=== PATIENT | female | born 1955 ===

== ENCOUNTER 2016-09-11 12:08 | Emergency (ER) | payer MEDICAID ==
[2016-09-11 12:29] VITALS: BP 131/82; PULSE 93; RESP 18; TEMP 97.9; O2SAT 99
[2016-09-11 14:19] LABS: RBC URINE 2 /hpf (0-3); URINE BILIRUBIN NEGATIVE (NEGATIVE); URINE BLOOD NEGATIVE (NEGATIVE); URINE COLOR YELLOW (YELLOW); URINE GLUCOSE (UA) NEG (Normal); URINE KETONE NEGATIVE (NEGATIVE); URINE LEUKOCYTE ESTERASE NEG Leu/uL (Negative); URINE PROTEIN NEGATIVE (NEGATIVE); URINE UROBILINOGEN 0.2-1.0 mg/dL (0.2-1.0); WBC URINE < 1 /hpf (0-5)
--- NOTE | 2016-09-11 14:35 | ED PDOC ---
HPI: Psych/Substance Abuse Time Seen by Provider: 09/11/16 12:33 Chief Complaint (Nursing): Psychiatric Evaluation Chief Complaint (Provider): Anxiety History Per: Patient History/Exam Limitations: no limitations Onset/Duration Of Symptoms: Days Current Symptoms Are (Timing): Still Present Suicide/Self Injury Attempted (Context): None Modifying Factor(s): None Severity: Moderate Associated Symptoms: Anxiety. denies: Suicidal Thoughts, Suicidal Plan Involuntary Hold By: None Additional History Per: Patient Additional Complaint(s): The pt is a 60yo female with PMHx of Anxiety and Panic Disorder, presents to the ED for evaluation due to anxiety. Pt reports she is under a lot of stress as she is currently living in the homeless long term and states she has a lot of anxiety with her living condition due to concerns about getting removed from her long term. She denies any suicidal or homicidal ideation. At present, she offers no additional medical complaints. PMD: None provided Past Medical History Reviewed: Historical Data, Nursing Documentation, Vital Signs Vital Signs: Last Vital Signs Temp 97.9 F 09/11/16 12:25 Pulse 93 H 09/11/16 12:25 Resp 18 09/11/16 12:25 BP 131/82 09/11/16 12:25 Pulse Ox 99 09/11/16 12:25 - Medical History PMH: Anxiety, Gastritis, Kidney Stones - Surgical History Surgical History: No Surg Hx - Family History Family History: States: Unknown Family Hx - Social History Current smoker - smoking cessation education provided: No Alcohol: None Drugs: Denies - Home Medications Home Medications: Ambulatory Orders Medication Instructions Recorded Diazepam [Valium] 2 mg PO DAILY PRN #5 tablet 09/11/16 - Allergies Allergies/Adverse Reactions: Allergies Allergy/AdvReac Type Severity Reaction Status Date / Time No Known Allergies Allergy Verified 08/14/16 17:05 Review of Systems ROS Statement: Except As Marked, All Systems Reviewed And Found Negative Psych: Positive for: Anxiety. Negative for: Suicidal ideation Physical Exam - Reviewed Nursing Documentation Reviewed: Yes Vital Signs Reviewed: Yes - Physical Exam Appears: Positive for: Well, Non-toxic, No Acute Distress Head Exam: Positive for: ATRAUMATIC, NORMAL INSPECTION, NORMOCEPHALIC Cardiovascular/Chest: Positive for: Regular Rate, Rhythm Neurologic/Psych: Positive for: Alert, Oriented, Mood/Affect (anxious) - ECG O2 Sat by Pulse Oximetry: 99 (RA) Pulse Ox Interpretation: Normal Medical Decision Making Medical Decision Making: Time: 1300 Impression: Anxiety Plan: -- Crisis eval -- Urine dipstick --Reassess Time: 1430 Pt seen and evaluated by crisis, does not meet criteria for admission. Pt cleared by discharge by Dr. Paiz. Final diagnosis: Anxiety Scribe Attestation: Documented by Adilia Forrest acting as a scribe for Neri Brown MD. Provider Attestation: All medical record entries made by the Scribe were at my direction and personally dictated by me. I have reviewed the chart and agree that the record accurately reflects my personal performance of the history, physical exam, medical decision making, and the department course for this patient. I have also personally directed, reviewed, and agree with the discharge instructions and disposition. Disposition - Clinical Impression Clinical Impression: Anxiety - Patient ED Disposition Is Patient to be Admitted: No - Disposition Referrals: [facility] [Outside] Disposition: Routine/Home Disposition Time: 14:37 Condition: STABLE Prescriptions: Diazepam [Valium] 2 mg PO DAILY PRN #5 tablet PRN Reason: Anxiety Instructions: Anxiety (ED) Print Language: SYRIAC
== END 2016-09-11 15:12 | disposition home or self-care (01) ==
LOC: H.ER 12:08
DX: F41.9 Anxiety disorder, unspecified (principal)

== ENCOUNTER 2016-09-15 06:43 | Emergency (ER) | payer MEDICAID ==
[2016-09-15 07:00] VITALS: BP 135/78; PULSE 85; RESP 17; TEMP 97.6; O2SAT 99
--- NOTE | 2016-09-15 07:25 | ED PDOC ---
HPI: CCC, URI, Sore Throat Time Seen by Provider: 09/15/16 07:08 Chief Complaint (Nursing): ENT Problem Chief Complaint (Provider): cough History Per: Patient History/Exam Limitations: no limitations Onset/Duration Of Symptoms: Days (3-4) Additional Complaint(s): 60yo female complaining of cough with sputum, sore throat, runny nose. Also reports a headache which she resolved with Excedrin. No nausea. States secondary complaint that she finished Rx diazepam and now has further anxiety. No PMD Past Medical History Reviewed: Historical Data, Nursing Documentation, Vital Signs Vital Signs: Last Vital Signs Temp 97.6 F 09/15/16 06:57 Pulse 85 09/15/16 06:57 Resp 17 09/15/16 06:57 BP 135/78 09/15/16 06:57 Pulse Ox 99 09/15/16 07:55 - Medical History PMH: Anxiety, Gastritis, Kidney Stones Denies: Diabetes, Hepatitis, HIV, HTN, Seizures, Sexually Transmitted Disease - Surgical History Surgical History: No Surg Hx - Family History Family History: States: Unknown Family Hx - Social History Drugs: Denies - Home Medications Home Medications: Ambulatory Orders Medication Instructions Recorded Diazepam [Valium] 2 mg PO DAILY PRN #5 tablet 09/11/16 ALPRAZolam [Xanax] 1 mg PO BID PRN #6 tab 09/15/16 Fluticasone Propionate [Flonase] 1 spr YOHANA BID #1 bottle 09/15/16 Guaifenesin [Mucinex] 600 mg PO BID PRN #12 tab.er.12h 09/15/16 Ibuprofen [Motrin Tab] 600 mg PO Q6 PRN #15 tab 09/15/16 - Allergies Allergies/Adverse Reactions: Allergies Allergy/AdvReac Type Severity Reaction Status Date / Time No Known Allergies Allergy Verified 08/14/16 17:05 Review of Systems ROS Statement: Except As Marked, All Systems Reviewed And Found Negative Constitutional: Negative for: Fever ENT: Positive for: Nose Discharge, Throat Pain Respiratory: Positive for: Cough, Sputum Gastrointestinal: Negative for: Nausea Psych: Positive for: Anxiety Physical Exam - Reviewed Nursing Documentation Reviewed: Yes Vital Signs Reviewed: Yes - Physical Exam Appears: Positive for: Well, Non-toxic, No Acute Distress Head Exam: Positive for: ATRAUMATIC, NORMAL INSPECTION, NORMOCEPHALIC Skin: Positive for: Warm, Dry Eye Exam: Positive for: EOMI, PERRL ENT: Positive for: Pharyngeal Erythema (mild), Other (Boggy turbinates. Ears are normal). Negative for: Tonsillar Exudate, Tonsillar Swelling Cardiovascular/Chest: Positive for: Regular Rate, Rhythm Respiratory: Positive for: Normal Breath Sounds. Negative for: Rales, Rhonchi, Wheezing Extremity: Positive for: Normal ROM Neurologic/Psych: Positive for: Alert, Oriented - ECG O2 Sat by Pulse Oximetry: 99 (RA) Pulse Ox Interpretation: Normal Medical Decision Making Medical Decision Makin Rx flonase, motrin, mucinex. Patient stable for discharge. Follow up given to clinic. Return precautions given. Explained will give 6 tabs of Xanax for anxiety but will not be able to give additional anxiety medications through the ED again. Instructed to follow up with clinic for anxiety as well. Disposition - Clinical Impression Clinical Impression: Upper respiratory infection, Anxiety - Disposition Referrals: [facility] [Outside] [facility] [Outside] Disposition: Routine/Home Disposition Time: 07:32 Condition: STABLE Additional Instructions: See clinic for further testing. Prescriptions: Fluticasone Propionate [Flonase] 1 spr YOHANA BID #1 bottle Ibuprofen [Motrin Tab] 600 mg PO Q6 PRN #15 tab PRN Reason: Pain, Moderate (4-7) Guaifenesin [Mucinex] 600 mg PO BID PRN #12 tab.er.12h PRN Reason: Cough ALPRAZolam [Xanax] 1 mg PO BID PRN #6 tab PRN Reason: Anxiety Instructions: Upper Respiratory Infection (ED), Anxiety (ED) Additional Comments - Additional Comments Additional Comments: Scribe Attestation: Documented by Wilian Benitez acting as a scribe for Jef Martins DO. Provider Scribe Attestation: All medical record entries made by the Scribe were at my direction and personally dictated by me. I have reviewed the chart and agree that the record accurately reflects my personal performance of the history, physical exam, medical decision making, and the department course for this patient. I have also personally directed, reviewed, and agree with the discharge instructions and disposition.
== END 2016-09-15 08:05 | disposition home or self-care (01) ==
LOC: H.ER 06:43
DX: J06.9 Acute upper respiratory infection, unspecified (principal); J02.9 Acute pharyngitis, unspecified; F41.9 Anxiety disorder, unspecified; R51 Headache

== ENCOUNTER 2016-09-19 11:29 | Emergency (ER) | payer MEDICAID ==
[2016-09-19 12:41] VITALS: BP 125/90; PULSE 77; RESP 19; TEMP 97.9; O2SAT 100
--- NOTE | 2016-09-19 13:15 | ED PDOC ---
HPI: CCC, URI, Sore Throat Time Seen by Provider: 09/19/16 11:38 Chief Complaint (Nursing): Flu-like Symptoms History Per: Patient (states that she has persistent dry cough and that her throat is so itchy that she cannot sleep at night. She is also concerned that her voice has not recovered. She was seen in the ER 3 days ago and discharged on Mucinex, Flonase and Xanax. She is a patient at the [facility]. Aside from the cough , she offers no other systemic complaints.) History/Exam Limitations: no limitations Current Symptoms Are (Timing): Still Present Past Medical History Reviewed: Historical Data, Nursing Documentation, Vital Signs Vital Signs: Last Vital Signs Temp 97.9 F 09/19/16 11:47 Pulse 77 09/19/16 11:47 Resp 19 09/19/16 11:47 BP 125/90 09/19/16 11:47 Pulse Ox 100 09/19/16 11:47 - Medical History PMH: Anxiety, Gastritis, Kidney Stones, Chronic Kidney Disease Denies: Diabetes, Hepatitis, HIV, HTN, Seizures, Sexually Transmitted Disease - Family History Family History: States: Unknown Family Hx - Home Medications Home Medications: Ambulatory Orders Medication Instructions Recorded Diazepam [Valium] 2 mg PO DAILY PRN #5 tablet 09/11/16 ALPRAZolam [Xanax] 1 mg PO BID PRN #6 tab 09/15/16 Fluticasone Propionate [Flonase] 1 spr YOHANA BID #1 bottle 09/15/16 Guaifenesin [Mucinex] 600 mg PO BID PRN #12 tab.er.12h 09/15/16 Ibuprofen [Motrin Tab] 600 mg PO Q6 PRN #15 tab 09/15/16 Benzonatate [Tessalon Perles] 100 mg PO TID #30 sgl 09/19/16 - Allergies Allergies/Adverse Reactions: Allergies Allergy/AdvReac Type Severity Reaction Status Date / Time No Known Allergies Allergy Verified 08/14/16 17:05 Review of Systems ROS Statement: Except As Marked, All Systems Reviewed And Found Negative Constitutional: Negative for: Fever, Chills Respiratory: Positive for: Cough Gastrointestinal: Negative for: Nausea, Vomiting Physical Exam - Reviewed Nursing Documentation Reviewed: Yes Vital Signs Reviewed: Yes - Physical Exam Appears: Positive for: Well, Non-toxic, No Acute Distress Head Exam: Positive for: ATRAUMATIC, NORMAL INSPECTION, NORMOCEPHALIC Skin: Positive for: Normal Color, Warm, DRY Eye Exam: Positive for: EOMI, Normal appearance, PERRL ENT: Positive for: Normal ENT Inspection Neck: Positive for: Normal, Painless ROM Cardiovascular/Chest: Positive for: Regular Rate, Rhythm Respiratory: Positive for: CNT, Normal Breath Sounds Gastrointestinal/Abdominal: Positive for: Normal Exam, Bowel Sounds, Soft Back: Positive for: Normal Inspection Extremity: Positive for: Normal ROM Neurologic/Psych: Positive for: Alert, Oriented - ECG O2 Sat by Pulse Oximetry: 100 Disposition - Clinical Impression Clinical Impression: Upper respiratory infection - Patient ED Disposition Is Patient to be Admitted: No Doctor Will See Patient In The: Office Counseled Patient/Family Regarding: Diagnosis, Need For Followup, Rx Given - Disposition Referrals: [facility] [Outside] [facility] [Outside] Disposition: Routine/Home Disposition Time: 13:15 Condition: STABLE Prescriptions: Benzonatate [Tessalon Perles] 100 mg PO TID #30 sgl Instructions: Upper Respiratory Infection (ED), Laryngitis (ED) Print Language: BHUTANESE - POA Present On Arrival: None
== END 2016-09-19 13:58 | disposition home or self-care (01) ==
LOC: H.ER 11:29
DX: J06.9 Acute upper respiratory infection, unspecified (principal)